=== PATIENT | female | born 1965 | race Caucasian/White ===

== ENCOUNTER 2016-09-21 23:10 | Emergency (ER) | payer OTHER | END 2016-09-22 00:30 | disposition home or self-care (01) | LOC: D.ER 23:10 | DX: M54.30 Sciatica, unspecified side (principal); M54.5 Low back pain; M54.10 Radiculopathy, site unspecified; I10 Essential (primary) hypertension; E03.9 Hypothyroidism, unspecified; E11.9 Type 2 diabetes mellitus without complications; F17.200 Nicotine dependence, unspecified, uncomplicated ==

== ENCOUNTER 2016-11-21 21:38 | Emergency (ER) | payer OTHER | END 2016-11-21 22:50 | disposition home or self-care (01) | LOC: D.ER 21:38 | DX: N75.0 Cyst of Bartholin's gland (principal); E11.9 Type 2 diabetes mellitus without complications; I10 Essential (primary) hypertension; E03.9 Hypothyroidism, unspecified ==

== ENCOUNTER 2017-07-10 20:03 | Emergency (ER) | payer OTHER ==
[2017-07-10 20:31] LABS: BASOPHILS 0.2 % (0-2); HEMATOCRIT 47.2 % (36.0-48.0); HEMOGLOBIN 16.9 g/dL (12-16); IMMATURE GRANULOCYTES 0.1 % (0-5); LYMPHOCYTES 47.4 % (15-50); MCH 30.5 pg (26.0-34.0); MCHC 35.8 g/dL (31.0-37.0); MEAN PLATELET VOLUME 10.7 fL (7.4-10.4); MONOCYTES 6.4 % (2-11); NEUTROPHILS 44.9 % (40-80); PLATELET COUNT 227 10x3/uL (130-400); RBC 5.55 10x6/uL (4.00-5.40); RDW 11.9 % (11.5-14.5); WBC 11.9 10x3/uL (4.8-10.8)
[2017-07-10 20:46] LABS: ALBUMIN 3.8 g/dL (3.4-5.0); ALKALINE PHOSPHATASE 131 U/L (46-116); ALT (SGPT) 42 U/L (10-68); BILIRUBIN - TOTAL 0.87 mg/dL (0.2-1.3); CALC OSMOLALITY 280 mosm/kg (275-300); CALCIUM 8.8 mg/dL (8.5-10.1); CARBON DIOXIDE 24.9 mmol/L (21.0-32.0); CHLORIDE - SERUM 102 mmol/L (98-107); CREATININE - SERUM 0.9 mg/dL (0.6-1.3); GLUCOSE 238 mg/dL (74-106); POTASSIUM - SERUM 3.8 mmol/L (3.5-5.1); PROTEIN - SERUM 7.9 g/dL (6.4-8.2); SODIUM 137 mmol/L (136-145); UREA NITROGEN 11 mg/dL (7-18); eGFR NON AFRICAN AMERICAN 70 mL/min (90-120)
[2017-07-10 20:57] LABS: CHOL - HDL RATIO 6.7 ratio (2.3-4.1); CHOLESTEROL, TOTAL 266 mg/dL (0-200); CKMB 0.2 U/L (0.0-3.6); CREATINE KINASE 49 UL (21-215); HDL CHOLESTEROL 40 mg/dL (32-96); TRIGLYCERIDE 432 mg/dL (30-200)
[2017-07-10 20:58] LABS: TROPONIN-I < 0.017 ng/mL (0.000-0.060)
== END 2017-07-10 22:39 | disposition home or self-care (01) ==
LOC: D.ER 20:03
PROVIDERS: Family Medicine
DX: F41.9 Anxiety disorder, unspecified (principal); R07.89 Other chest pain; R00.0 Tachycardia, unspecified